=== PATIENT | male | born 1985 | race Caucasian/White ===

== ENCOUNTER 2017-05-21 09:43 | Emergency (ER) | payer SELFPAY ==
[~2017-05-21] VITALS: Ht 162.6 cm; Wt 76.4 kg
[2017-05-21 10:02] VITALS: BP 139/76
== END 2017-05-21 13:58 | disposition left against medical advice (07) ==
LOC: ER 09:43
DX: R10.9 Unspecified abdominal pain (principal); Z53.21 Procedure and treatment not carried out due to patient leaving prior to being seen by health care provider